=== PATIENT | female | born 1980 | race Caucasian/White ===

== ENCOUNTER 2022-10-18 08:41 | Emergency (ER) | payer OTHER ==
[2022-10-18 08:51] VITALS: BP 121/61; PULSE 72; RESP 18; TEMP 98.4; BMI 28.0
[2022-10-18 10:28] LABS: BASO % 0.2 % (0-2.0); EOS % 0.2 % (0-4.5); HEMATOCRIT 39.7 % (32.4-45.2); HEMOGLOBIN 13.5 GM/dL (10.7-15.3); LYMPH % 16.3 % (8-40); MCH 29.9 pg (25.7-33.7); MEAN PLT VOLUME 7.3 fl (7.5-11.1); MONO % 4.5 % (3.8-10.2); NEUT % 78.8 % (42.8-82.8); PLATELET COUNT 329 10^3/uL (134-434); RBC 4.51 M/mm3 (3.60-5.2); RDW 14.9 % (11.6-15.6); WHITE BLOOD COUNT 7.1 K/mm3 (4.0-10.0)
[2022-10-18 10:39] LABS: POTASSIUM 4.1 mmol/L (3.5-5.1)
[2022-10-18 10:41] LABS: ALBUMIN 3.6 g/dl (3.4-5.0); BLOOD UREA NITROGEN 6.7 mg/dL (7-18); CALCIUM 9.2 mg/dL (8.5-10.1)
[2022-10-18 10:42] LABS: EPI CELLS >36 /uL (0-25.1); HYALINE CASTS 5 /uL (0-3.1); PH,URINE 5.5 (5.0-8.0); URINE APPEARANCE CLOUDY; URINE BACTERIA 5990 /uL (0-1359); URINE BILIRUBIN NEGATIVE (NEGATIVE); URINE COLOR YELLOW; URINE GLUCOSE (UA) NEGATIVE (NEGATIVE); URINE KETONE NEGATIVE (NEGATIVE); URINE LEUK ESTERASE TRACE (NEGATIVE); URINE NITRITE NEGATIVE (NEGATIVE); URINE PROTEIN TRACE (NEGATIVE); URINE UROBILINOGEN 0.2 mg/dL (0.2-1.0); URINE WBC 54 /uL (0-25.8)
[2022-10-18 10:44] LABS: CREATININE 0.8 mg/dL (0.55-1.3)
[2022-10-18 10:46] LABS: TOT PROT 7.4 g/dl (6.4-8.2)
[2022-10-18 10:52] LABS: URINE RBC 31.5 /uL (0-23.9)
[2022-10-18] MEDS ORDERED: ACETAMINOPHEN 500 MG TABLET (FP) PO ONE (16:15)
[2022-10-18] MEDS ORDERED: ACETAMINOPHEN 325 MG TABLET (FP) ONE (16:58)
== END 2022-10-18 17:56 | disposition home or self-care (01) ==
LOC: JER 08:41
DX: O20.9 Hemorrhage in early pregnancy, unspecified (principal); Z3A.01 Less than 8 weeks gestation of pregnancy
CPT/HCPCS: 36415; 76830-TC; 80053; 81003; 84702; 85025; 86850; 86900; 86901; 87086; 99284-25

== ENCOUNTER 2022-11-10 19:23 | Emergency (ER) | payer OTHER ==
[2022-11-10 19:30] VITALS: BP 119/70; PULSE 82; RESP 18; TEMP 98.7; BMI 28.3
[2022-11-10 21:23] LABS: BASO % 0.5 % (0-2.0); EOS % 0.4 % (0-4.5); HEMATOCRIT 41.9 % (32.4-45.2); HEMOGLOBIN 13.6 GM/dL (10.7-15.3); LYMPH % 18.9 % (8-40); MCH 29.1 pg (25.7-33.7); MCHC 32.5 g/dl (32.0-36.0); MEAN CELL VOLUME 89.6 fl (80-96); MEAN PLT VOLUME 7.3 fl (7.5-11.1); MONO % 3.9 % (3.8-10.2); NEUT % 76.3 % (42.8-82.8); PLATELET COUNT 346 10^3/uL (134-434); RBC 4.68 M/mm3 (3.60-5.2); RDW 14.3 % (11.6-15.6); WHITE BLOOD COUNT 9.9 K/mm3 (4.0-10.0)
[2022-11-10 21:52] LABS: POTASSIUM 3.8 mmol/L (3.5-5.1)
[2022-11-10 21:54] LABS: CALCIUM 9.2 mg/dL (8.5-10.1)
[2022-11-10 21:55] LABS: ALBUMIN 3.9 g/dl (3.4-5.0)
[2022-11-10 21:58] LABS: CREATININE 0.8 mg/dL (0.55-1.3)
[2022-11-10 22:00] LABS: TOT PROT 8.5 g/dl (6.4-8.2)
[2022-11-10 22:42] LABS: BLOOD UREA NITROGEN 13.5 mg/dL (7-18)
[2022-11-10] MEDS ORDERED: ACETAMINOPHEN 500 MG TABLET (FP) PO ONE (23:21)
[2022-11-10] MEDS ORDERED: ACETAMINOPHEN 500 MG TABLET (FP) ONE (23:22)
== END 2022-11-10 23:36 | disposition home or self-care (01) ==
LOC: JER 19:23
DX: O26.851 Spotting complicating pregnancy, first trimester (principal); O26.891 Other specified pregnancy related conditions, first trimester; R10.30 Lower abdominal pain, unspecified; N76.89 Other specified inflammation of vagina and vulva; O03.9 Complete or unspecified spontaneous abortion without complication; Z3A.08 8 weeks gestation of pregnancy
CPT/HCPCS: 36415; 76817-TC; 80053; 84702; 85025; 99284-25

== ENCOUNTER 2022-11-11 23:52 | Emergency (ER) | payer OTHER ==
[2022-11-12 00:10] VITALS: BP 111/74; PULSE 72; RESP 20; TEMP 97.9; BMI 30.2
[2022-11-12] MEDS ORDERED: KETOROLAC TROMETHAMINE 30 MG/1 ML VIAL IVPUSH ONE (00:14)
[2022-11-12] MEDS ORDERED: KETOROLAC TROMETHAMINE 30 MG/1 ML VIAL ONE (00:36)
[2022-11-12 01:15] LABS: BASO % 0.3 % (0-2.0); EOS % 0.2 % (0-4.5); HEMOGLOBIN 13.2 GM/dL (10.7-15.3); LYMPH % 9.9 % (8-40); MCH 29.5 pg (25.7-33.7); MCHC 33.8 g/dl (32.0-36.0); MEAN CELL VOLUME 87.2 fl (80-96); MEAN PLT VOLUME 7.2 fl (7.5-11.1); MONO % 3.7 % (3.8-10.2); NEUT % 85.9 % (42.8-82.8); PLATELET COUNT 321 10^3/uL (134-434); RBC 4.48 M/mm3 (3.60-5.2); RDW 14.3 % (11.6-15.6); WHITE BLOOD COUNT 12.3 K/mm3 (4.0-10.0)
[2022-11-12 01:23] LABS: INR 1.04 (0.83-1.09); PROTHROMBIN TIME (PATIENT) 12.1 SEC (9.7-13.0)
[2022-11-12 01:26] LABS: ACTIVATED PTT 28.2 SECONDS (25.2-36.5)
[2022-11-12 01:45] LABS: POTASSIUM 4.3 mmol/L (3.5-5.1)
[2022-11-12 01:47] LABS: CALCIUM 8.7 mg/dL (8.5-10.1)
[2022-11-12 01:48] LABS: ALBUMIN 3.7 g/dl (3.4-5.0); BLOOD UREA NITROGEN 13.5 mg/dL (7-18)
[2022-11-12 01:51] LABS: CREATININE 0.9 mg/dL (0.55-1.3)
[2022-11-12 01:52] LABS: BILIRUBIN,TOTAL 0.8 mg/dL (0.2-1)
[2022-11-12 01:53] LABS: TOT PROT 7.5 g/dl (6.4-8.2)
[2022-11-12] MEDS ORDERED: SODIUM CHLORIDE 0.9% 500 ML INFUS.BAG IV ONE (03:24)
[2022-11-12 03:32] LABS: EPI CELLS 22 /uL (0-25.1); HYALINE CASTS 0 /uL (0-3.1); URINE APPEARANCE CLOUDY; URINE BACTERIA 31 /uL (0-1359); URINE BILIRUBIN NEGATIVE (NEGATIVE); URINE COLOR ORANGE; URINE GLUCOSE (UA) NEGATIVE (NEGATIVE); URINE KETONE TRACE (NEGATIVE); URINE LEUK ESTERASE 1+ (NEGATIVE); URINE NITRITE NEGATIVE (NEGATIVE); URINE PROTEIN 1+ (NEGATIVE); URINE RBC 14650 /uL (0-23.9); URINE WBC 33 /uL (0-25.8)
== END 2022-11-12 04:35 | disposition home or self-care (01) ==
LOC: JER 23:52
PROC: 3E0333Z Introduction of Anti-inflammatory into Peripheral Vein, Percutaneous Approach (ICD-10-PCS; principal; 2022-11-12)
DX: O03.9 Complete or unspecified spontaneous abortion without complication (principal); R10.30 Lower abdominal pain, unspecified; E86.0 Dehydration; R10.2 Pelvic and perineal pain
CPT/HCPCS: 36415; 80053; 81003; 84702; 85025; 85610; 85730; 86850; 86900; 86901; 87086; 99284-25